=== PATIENT | female | born 1975 | race Caucasian/White ===

== ENCOUNTER 2017-06-03 17:50 | Emergency (ER) | payer OTHER ==
[2017-06-03 17:55] VITALS: BP 140/97; PULSE 91; TEMP 98.5; BMI 38.3
[2017-06-03] MEDS ORDERED: ACETAMINOPHEN 325 MG TABLET (FP) PO ONE (18:13)
--- NOTE | 2017-06-03 18:18 | PDOC ---
History of Present Illness - General History Source: Patient - History of Present Illness Timing/Duration: other Severity: severe Associated Symptoms: reports: headaches. denies: cough, diaphoresis, fever/ chills, malaise, nausea/vomiting, shortness of breath, weakness <Bola Milton - Last Filed: 06/03/17 18:56> <Yeny De La Garza - Last Filed: 06/03/17 21:04> - General Chief Complaint: Pain Stated Complaint: ACUTE, PAIN Time Seen by Provider: 06/03/17 17:59 Past History - Past Medical History Thyroid Disease: Yes - Surgical History Abdominal Surgery: Yes - Psycho/Social/Smoking Cessation Hx Suicidal Ideation: No Smoking History: Never smoked Information on smoking cessation initiated: No <Bola Milton - Last Filed: 06/03/17 18:56> <Yeny De La Garza - Last Filed: 06/03/17 21:04> - Past Medical History Allergies/Adverse Reactions: Allergies Allergy/AdvReac Type Severity Reaction Status Date / Time aspirin Allergy Verified 06/03/17 17:55 Home Medications: Ambulatory Orders Ibuprofen 600 mg PO TID PRN #21 tablet 06/03/17 Levothyroxine [Synthroid -] 25 mcg PO DAILY 06/03/17 Review of Systems - Review of Systems Constitutional: No: Chills, Fever Respiratory: No: Cough, Shortness of Breath Cardiac (ROS): No: Chest Pain ABD/GI: No: Diarrhea, Nausea, Vomiting : No: Dysuria Neurological: Yes: Headache, Dizziness <Bola Milton - Last Filed: 06/03/17 18:56> *Physical Exam - Vital Signs Last Vital Signs Temp Pulse Resp BP Pulse Ox 98.5 F 91 H 18 140/97 98 06/03/17 17:51 06/03/17 17:51 06/03/17 17:51 06/03/17 17:51 06/03/17 17:51 - Physical Exam General Appearance: Yes: Appropriately Dressed. No: Apparent Distress HEENT: positive: Normal Voice Neck: positive: Supple Respiratory/Chest: positive: Lungs Clear, Normal Breath Sounds. negative: Respiratory Distress Cardiovascular: positive: Regular Rate, S1, S2 Gastrointestinal/Abdominal: positive: Soft. negative: Tender Extremity: positive: Normal Inspection. negative: Tender, Swelling Integumentary: positive: Dry, Warm Neurologic: positive: Fully Oriented, Alert, Normal Mood/Affect <Bola Milton - Last Filed: 06/03/17 18:56> - Vital Signs Last Vital Signs Temp Pulse Resp BP Pulse Ox 98.5 F 91 H 18 140/97 98 06/03/17 17:51 06/03/17 17:51 06/03/17 17:51 06/03/17 17:51 06/03/17 17:51 <Yeny De La Garza - Last Filed: 06/03/17 21:04> ED Treatment Course - LABORATORY CBC & Chemistry Diagram: 06/03/17 18:25 06/03/17 18:25 - RADIOLOGY Radiology Studies Ordered: Category Date Time Status CHEST X-RAY PORTABLE* [RAD] Stat Radiology 06/03/17 18:12 Ordered <Bola Milton - Last Filed: 06/03/17 18:56> - LABORATORY CBC & Chemistry Diagram: 06/03/17 18:25 06/03/17 18:25 - ADDITIONAL ORDERS Additional order review: Laboratory Results 06/03/17 06/03/17 06/03/17 19:00 18:25 18:25 Sodium 140 Potassium 3.9 Chloride 107 Carbon Dioxide 24 Anion Gap 9 BUN 14 Creatinine 1.0 Creat Clearance w eGFR > 60 Random Glucose 102 Total Bilirubin 0.3 AST 31 ALT 49 Alkaline Phosphatase 107 Creatine Kinase 372 H Troponin I < 0.02 Total Protein 7.3 Albumin 3.5 Lipase 202 TSH 1.20 Serum , Qual Negative Urine Color Straw Urine Appearance Clear Urine pH 6.0 Urine Protein Negative Urine Glucose (UA) Negative Urine Ketones Negative Urine Blood 1+ H Urine Nitrite Negative Urine Bilirubin Negative Urine Urobilinogen Negative Ur Leukocyte Esterase Negative Urine RBC <1 Urine WBC None Ur Epithelial Cells Rare Urine Bacteria Rare Urine Mucus Rare 06/03/17 18:25 RBC 4.75 MCV 86.0 MCHC 33.5 RDW 15.0 MPV 10.5 Neutrophils % 56.8 Lymphocytes % 33.1 Monocytes % 6.8 Eosinophils % 2.2 Basophils % 1.1 - Medications Given in the ED: ED Medications Discontinued Medications Generic Name Dose Route Start Last Admin Trade Name Freq PRN Reason Stop Dose Admin Acetaminophen 650 mg 06/03/17 18:13 06/03/17 18:33 Tylenol - PO 06/03/17 18:14 650 mg ONCE ONE Administration Ketorolac Tromethamine 60 mg 06/03/17 20:27 06/03/17 20:33 Toradol Injection - IM 06/03/17 20:28 60 mg ONCE ONE Administration <Yeny De La Garza - Last Filed: 06/03/17 21:04> Medical Decision Making - Medical Decision Making 06/03/17 18:14 42 yo F, h/o hyperthyroidism, on meds, here w/ pain to R side of body from head to foot x several days. Unable to describe pain, but states it is severe and has , had intermittent lightheadedness since yesterday. Patient denies any URI symptoms, fever, chills, nausea, vomiting, chest pain, shortness of breath, change in bowel movements or dysuria. No trauma or obvious inciting factors. No history of similar symptoms See exam Body aches w/ intermittent lightheadedness of unclear etiology, ?viral Exam unremarkable -basic labs -pain control -anticipate dc w/ pmd f/u 06/03/17 18:17 06/03/17 18:18 <Bola Milton - Last Filed: 06/03/17 18:56> *DC/Admit/Observation/Transfer <Bola Milton - Last Filed: 06/03/17 18:56> <Yeny De La Garza - Last Filed: 06/03/17 21:04> Diagnosis at time of Disposition: Body aches - Discharge Dispostion Condition at time of disposition: Good - Prescriptions Prescriptions: Ibuprofen 600 mg PO TID PRN #21 tablet PRN Reason: Pain - Referrals Referrals: Amrita Hanson [Primary Care Provider] - - Patient Instructions Additional Instructions: The cause of your symptoms are unclear at this time; as discussed, you must follow up with Dr. Hanson and the storekeeper engineering for further evaluation of your body aches. Take ibuprofen as needed for pain. If you develop fever, chills, nausea, vomiting, diarrhea, chest pain, sudden sharp headache, weakness , blurry vision, difficulty speaking or walking, or any new or worsening symptoms, please return to the ER.
[2017-06-03] MEDS ORDERED: ACETAMINOPHEN 325 MG TABLET (FP) ONE (18:31)
[2017-06-03 18:44] LABS: BASOPHIL 1.1 % (0-2.0); EOSINOPHIL 2.2 % (0-4.5); MCH 28.8 pg (25.7-33.7); MCHC 33.5 g/dl (32.0-36.0); MEAN PLT VOLUME 10.5 fl (7.5-11.1); NEUTROPHILS 56.8 % (42.8-82.8); PLATELET COUNT 233 K/MM3 (134-434); WHITE BLOOD COUNT 8.4 K/mm3 (4.0-10.0)
[2017-06-03 19:05] LABS: URINE APPEARANCE CLEAR; URINE BILIRUBIN NEGATIVE (NEGATIVE); URINE BLOOD 1+ (NEGATIVE); URINE COLOR STRAW; URINE GLUCOSE (UA) NEGATIVE (NEGATIVE); URINE KETONE NEGATIVE (NEGATIVE); URINE LEUK ESTERASE NEGATIVE (NEGATIVE); URINE NITRITE NEGATIVE (NEGATIVE); URINE PROTEIN NEGATIVE (NEGATIVE); URINE UROBILINOGEN NEGATIVE mg/dL (0.2-1.0)
--- NOTE | 2017-06-03 19:05 | PDOC ---
*Physical Exam - Vital Signs Last Vital Signs Temp Pulse Resp BP Pulse Ox 98.5 F 91 H 18 140/97 98 06/03/17 17:51 06/03/17 17:51 06/03/17 17:51 06/03/17 17:51 06/03/17 17:51 Heart Score/ECG Review #1 ECG reviewed & interpreted by me at: 19:05 General ECG Interpretation: Sinus Rhythm, Normal Rate, Normal Intervals, No acute ischemic changes ED Treatment Course - LABORATORY CBC & Chemistry Diagram: 06/03/17 18:25 06/03/17 18:25 - ADDITIONAL ORDERS Additional order review: 06/03/17 18:25 RBC 4.75 MCV 86.0 MCHC 33.5 RDW 15.0 MPV 10.5 Neutrophils % 56.8 Lymphocytes % 33.1 Monocytes % 6.8 Eosinophils % 2.2 Basophils % 1.1 - Medications Given in the ED: ED Medications Discontinued Medications Generic Name Dose Route Start Last Admin Trade Name Freq PRN Reason Stop Dose Admin Acetaminophen 650 mg 06/03/17 18:13 06/03/17 18:33 Tylenol - PO 06/03/17 18:14 650 mg ONCE ONE Administration Medical Decision Making - Medical Decision Making This patient is a 42 yo F who presents to the ER with a complaint of right sided pain Pt seen by Midlevel Provider under my direct supervision Ancillary studies reviewed I agree with plan as outlined by Midlevel Provider No findings on pt labs Pt apparently has had elevated ANAs with her PMD Given toradol with decreased pain D/c to home Follow up with PMD 06/03/17 21:05 Laboratory Tests 06/03/17 06/03/17 06/03/17 18:25 18:25 18:25 WBC 8.4 Hgb 13.7 Hct 40.8 Plt Count 233 Sodium 140 Potassium 3.9 Chloride 107 Carbon Dioxide 24 BUN 14 Creatinine 1.0 Random Glucose 102 Creatine Kinase 372 H Troponin I < 0.02 Lipase 202 TSH Serum , Qual Negative Urine Blood 1+ H Urine Nitrite Negative Ur Leukocyte Esterase Negative 06/03/17 19:00 WBC Hgb Hct Plt Count Sodium Potassium Chloride Carbon Dioxide BUN Creatinine Random Glucose Creatine Kinase Troponin I Lipase TSH 1.20 Serum , Qual Urine Blood Urine Nitrite Ur Leukocyte Esterase 06/03/17 21:08 *DC/Admit/Observation/Transfer Diagnosis at time of Disposition: Body aches - Discharge Dispostion Condition at time of disposition: Good - Prescriptions Prescriptions: Ibuprofen 600 mg PO TID PRN #21 tablet PRN Reason: Pain - Referrals Referrals: Amrita Hanson [Primary Care Provider] - - Patient Instructions Additional Instructions: The cause of your symptoms are unclear at this time; as discussed, you must follow up with Dr. Hanson and the chicken catcher for further evaluation of your body aches. Take ibuprofen as needed for pain. If you develop fever, chills, nausea, vomiting, diarrhea, chest pain, sudden sharp headache, weakness , blurry vision, difficulty speaking or walking, or any new or worsening symptoms, please return to the ER. - Post Discharge Activity
[2017-06-03 19:06] LABS: URINE BACTERIA RARE /hpf (NONE SEEN); URINE MUCUS RARE; URINE RBC <1 /hpf (0-3)
--- NOTE | 2017-06-03 19:19 | PDOC ---
*Physical Exam - Vital Signs Last Vital Signs Temp Pulse Resp BP Pulse Ox 98.5 F 91 H 18 140/97 98 06/03/17 17:51 06/03/17 17:51 06/03/17 17:51 06/03/17 17:51 06/03/17 17:51 - Physical Exam Comments: 06/03/17 19:17 Sign-out received from outgoing ER provider Yoan. Pt interviewed and examined. Ancillary studies reviewed. Awaiting labs. 06/03/17 20:31 CK elevated to 372, labs otherwise unremarkable. Patient reassessed; states she is feeling " a little better" but continues to have headache and R sided "cramping and like numbness". At this time patient reports that she had elevated TATUM levels from her last physical with Dr. Amrita Hanson and has an appointment with a internal control manager next week. Discussed with patient that it is important for her to keep her appointment but at this time we will try to control her pain and cramping. -60 mg Toradol IM 06/03/17 21:01 Patient reassessed; at this time she states she no longer feels any cramping or pain and is ready to go home. Patient states she will follow up with Dr. Hanson and the internal control manager for further evaluation of her new onset unilateral body aches. Advised patient of signs and symptoms for return to ER; patient verbalized understanding and agrees to plan. ED Treatment Course - LABORATORY CBC & Chemistry Diagram: 06/03/17 18:25 06/03/17 18:25 - ADDITIONAL ORDERS Additional order review: Laboratory Results 06/03/17 18:25 Urine Color Straw Urine Appearance Clear Urine pH 6.0 Urine Protein Negative Urine Glucose (UA) Negative Urine Ketones Negative Urine Blood 1+ H Urine Nitrite Negative Urine Bilirubin Negative Urine Urobilinogen Negative Ur Leukocyte Esterase Negative Urine RBC <1 Urine WBC None Ur Epithelial Cells Rare Urine Bacteria Rare Urine Mucus Rare 06/03/17 18:25 RBC 4.75 MCV 86.0 MCHC 33.5 RDW 15.0 MPV 10.5 Neutrophils % 56.8 Lymphocytes % 33.1 Monocytes % 6.8 Eosinophils % 2.2 Basophils % 1.1 - Medications Given in the ED: ED Medications Discontinued Medications Generic Name Dose Route Start Last Admin Trade Name Freq PRN Reason Stop Dose Admin Acetaminophen 650 mg 06/03/17 18:13 06/03/17 18:33 Tylenol - PO 06/03/17 18:14 650 mg ONCE ONE Administration *DC/Admit/Observation/Transfer Diagnosis at time of Disposition: Body aches - Discharge Dispostion Disposition: HOME Condition at time of disposition: Improved Admit: No - Prescriptions Prescriptions: Ibuprofen 600 mg PO TID PRN #21 tablet PRN Reason: Pain - Referrals Referrals: Amrita Hanson [Primary Care Provider] - - Patient Instructions Additional Instructions: The cause of your symptoms are unclear at this time as all your labs were normal in ED. Take tylenol as needed for pain and follow up with your PMD if symptoms persist - Post Discharge Activity
[2017-06-03 19:31] LABS: ALBUMIN 3.5 g/dl (3.4-5.0); ANION GAP 9 (8-16); BILIRUBIN,TOTAL 0.3 mg/dL (0.2-1.0); CO2 24 mmol/L (21-32); GLUCOSE,RANDOM 102 mg/dL (74-106); SGOT/AST 31 U/L (15-37); SGPT/ALT 49 U/L (12-78); TOT PROT 7.3 g/dl (6.4-8.2)
[2017-06-03 19:33] LABS: ALK PHOS 107 U/L (45-117); CPK 372 IU/L (26-192); TROPONIN I < 0.02 ng/ml (0.00-0.05)
[2017-06-03] MEDS ORDERED: KETOROLAC TROMETHAMINE 60 MG/2 ML VIAL IM ONE (20:27)
[2017-06-03] MEDS ORDERED: KETOROLAC TROMETHAMINE 60 MG/2 ML VIAL ONE (20:43)
[2017-06-03 23:32] LABS: CALCIUM 9.2 mg/dL (8.5-10.1)
--- NOTE | 2017-06-04 12:25 | EKG ---
Test Reason : Blood Pressure : / mmHG Vent. Rate : 079 BPM Atrial Rate : 079 BPM P-R Int : 178 ms QRS Dur : 080 ms QT Int : 380 ms P-R-T Axes : 035 029 033 degrees QTc Int : 435 ms NORMAL SINUS RHYTHM NORMAL ECG NO PREVIOUS ECGS AVAILABLE Confirmed by ALKA LI MD ([id number]) on 06/04/2017 12:25:14 PM Referred By: Confirmed By:ALKA LI MD
== END 2017-06-03 21:20 | disposition home or self-care (01) ==
LOC: JER 17:50
PROC: 3E0233Z Introduction of Anti-inflammatory into Muscle, Percutaneous Approach (ICD-10-PCS; principal; 2017-06-03)
DX: R52 Pain, unspecified (principal)
CPT/HCPCS: 36415; 71010-TC; 80053; 81003; 81015; 82553; 83690; 84443; 84484; 84703; 85025; 93005; 93010; 99283-25

== ENCOUNTER 2018-07-21 17:32 | Emergency (ER) | payer OTHER ==
[2018-07-21 17:41] VITALS: BP 140/90; PULSE 83; TEMP 97.9; BMI 41.3
[2018-07-21] MEDS ORDERED: ACETAMINOPHEN 500 MG TABLET (FP) PO ONE (17:42)
--- NOTE | 2018-07-21 17:42 | PDOC ---
Rapid Medical Evaluation Chief Complaint: Back Pain Time Seen by Provider: 07/21/18 17:40 Medical Evaluation: Allergies Allergy/AdvReac Type Severity Reaction Status Date / Time aspirin Allergy Verified 06/03/17 17:55 07/21/18 17:40 I have performed a brief in-person evaluation of this patient. The patient presents with a chief complaint of: atraumatic lower back pain since this morning Pertinent physical exam findings: No spinal tenderness. No CVAT. I have ordered the following: Tylenol The patient will proceed to the ED for further evaluation. Discharge Disposition - Diagnosis Back pain - Referrals - Patient Instructions - Post Discharge Activity
[2018-07-21] MEDS ORDERED: ACETAMINOPHEN 325 MG TABLET (FP) ONE (17:57)
[2018-07-21] MEDS ORDERED: KETOROLAC TROMETHAMINE 60 MG/2 ML VIAL IM ONE (18:04)
[2018-07-21] MEDS ORDERED: KETOROLAC TROMETHAMINE 60 MG/2 ML VIAL ONE (18:06)
--- NOTE | 2018-07-21 18:16 | PDOC ---
History of Present Illness - General Chief Complaint: Back Pain Stated Complaint: BACK PAIN Time Seen by Provider: 07/21/18 17:40 History Source: Patient Exam Limitations: No Limitations - History of Present Illness Initial Comments: 07/21/18 18:09 43 yr female history of hypothyroid states she pulled her lower back one week ago then today bent over to get soap in shower and felt a pain, worse to low back radiates to the left leg . Pain Location: reports: none, back Past History - Past Medical History Allergies/Adverse Reactions: Allergies Allergy/AdvReac Type Severity Reaction Status Date / Time aspirin Allergy Verified 06/03/17 17:55 Home Medications: Ambulatory Orders Levothyroxine [Synthroid -] 25 mcg PO DAILY 06/03/17 Cyclobenzaprine HCl [Flexeril -] 10 mg PO TID #21 tablet 07/21/18 Ibuprofen 600 mg PO TID PRN #20 tablet 07/21/18 Thyroid Disease: Yes - Surgical History Abdominal Surgery: Yes - Suicide/Smoking/Psychosocial Hx Smoking History: Never smoked Have you smoked in the past 12 months: No Information on smoking cessation initiated: No Hx Alcohol Use: No Drug/Substance Use Hx: No Review of Systems - Review of Systems Able to Perform ROS?: Yes Is the patient limited Guatemalan proficient: No Constitutional: No: Symptoms Reported HEENTM: No: Symptoms Reported Respiratory: No: Symptoms reported Cardiac (ROS): No: Symptoms Reported ABD/GI: No: Symptoms Reported : No: Symptoms Reported Musculoskeletal: Yes: Symptoms Reported, Back Pain *Physical Exam - Vital Signs Last Vital Signs Temp Pulse Resp BP Pulse Ox 97.9 F 83 16 140/90 98 07/21/18 17:37 07/21/18 17:37 07/21/18 17:37 07/21/18 17:37 07/21/18 17:37 - Physical Exam General Appearance: Yes: Nourished, Appropriately Dressed HEENT: positive: EOMI, RABIA Neck: positive: Supple. negative: Tender Respiratory/Chest: positive: Lungs Clear, Normal Breath Sounds Cardiovascular: positive: Regular Rhythm, Regular Rate Gastrointestinal/Abdominal: positive: Normal Bowel Sounds, Soft Lymphatic: negative: Adenopathy Musculoskeletal: positive: Normal Inspection, Decreased Range of Motion, Other ( paraspinal lumbar pain ). negative: CVA Tenderness, CVA Tenderness (R), CVA Tenderness (L), Vertebral Tenderness Extremity: positive: Normal Capillary Refill, Normal Inspection, Normal Range of Motion, Other (negative SLR left leg ) Integumentary: positive: Normal Color, Dry, Warm Neurologic: positive: Fully Oriented, Alert, Normal Mood/Affect, Normal Response , Motor Strength 01/30 ED Treatment Course - Medications Given in the ED: ED Medications Discontinued Medications Generic Name Dose Route Start Last Admin Trade Name Freq PRN Reason Stop Dose Admin Acetaminophen 975 mg 07/21/18 17:42 07/21/18 17:58 Tylenol - PO 07/21/18 17:43 975 mg ONCE ONE Administration Medical Decision Making - Medical Decision Making 07/21/18 18:16 cc: low back pain radiates to the left leg and thigh no abd pain no urine or bowel dysfunction no saddle anesthesia 07/21/18 18:20 toradol for pain will dc home with flexeril and ibuprofen (pt can take ibuprofen does not have allergy like ASA allergy, pt has tachycardia and halluciantions) *DC/Admit/Observation/Transfer Diagnosis at time of Disposition: Back pain Qualifiers: Back pain location: low back pain Chronicity: acute Back pain laterality: bilateral Sciatica presence: with sciatica Sciatica laterality: sciatica of left side Qualified Code(s): M54.42 - Lumbago with sciatica, left side - Discharge Dispostion Disposition: HOME Condition at time of disposition: Good - Prescriptions Prescriptions: Cyclobenzaprine HCl [Flexeril -] 10 mg PO TID #21 tablet Ibuprofen 600 mg PO TID PRN #20 tablet PRN Reason: Back Pain - Referrals Referrals: Mayi Kang MD [Primary Care Provider] - - Patient Instructions Additional Instructions: apply warm compresses to the lower back every 4hrs for 20 minutes use a topical cream such as Icy Hot or Aspercream take the flexeril muscle relaxant for spasm, take the ibuprofen for pain follow with your doctor in 2 days Return if any worse - Post Discharge Activity Forms/Work/School Notes: Back to Work
== END 2018-07-21 18:33 | disposition home or self-care (01) ==
LOC: JERFT 17:32
PROC: 3E0233Z Introduction of Anti-inflammatory into Muscle, Percutaneous Approach (ICD-10-PCS; principal; 2018-07-21)
DX: M54.42 Lumbago with sciatica, left side (principal)
CPT/HCPCS: 99281-25

== ENCOUNTER 2018-09-23 11:31 | Emergency (ER) | payer OTHER ==
[2018-09-23 11:53] VITALS: BP 149/84; PULSE 83; TEMP 98.3; BMI 41.3
[2018-09-23] MEDS ORDERED: METOCLOPRAMIDE HCL INJECTION 10 MG/2 ML VIAL IVPUSH ONE (14:09)
[2018-09-23] MEDS ORDERED: METOCLOPRAMIDE HCL INJECTION 10 MG/2 ML VIAL ONE (14:12)
[2018-09-23] MEDS ORDERED: SODIUM CHLORIDE 1,000 ML IV SCH (14:15)
[2018-09-23 14:27] LABS: BASO % 1.5 % (0-2.0); EOS % 1.7 % (0-4.5); HEMATOCRIT 38.4 % (32.4-45.2); HEMOGLOBIN 13.5 GM/dL (10.7-15.3); LYMPH % 33.2 % (8-40); MCH 30.1 pg (25.7-33.7); MCHC 35.3 g/dl (32.0-36.0); MEAN CELL VOLUME 85.4 fl (80-96); MEAN PLT VOLUME 10.4 fl (7.5-11.1); MONO % 7.4 % (3.8-10.2); NEUT % 56.2 % (42.8-82.8); PLATELET COUNT 216 K/MM3 (134-434); RBC 4.49 M/mm3 (3.60-5.2); RDW 15.1 % (11.6-15.6)
--- NOTE | 2018-09-23 14:34 | PDOC ---
History of Present Illness - General Chief Complaint: Headache Stated Complaint: HEADACHE, NAUSEA Time Seen by Provider: 09/23/18 13:54 History Source: Patient Exam Limitations: No Limitations - History of Present Illness Initial Comments: 09/23/18 14:28 CHIEF COMPLAINT: Headache HISTORY OF PRESENT ILLNESS: This is a 43-year-old female with a history of Sjogren syndrome, hypothyroidism, migraines, and neuropathy who presents with 10 days of worsening headache. She describes the pain as right-sided, throbbing , and intense. The pain is associated with nausea without vomiting, photophobia , and right arm numbness. She reports that this is different from prior migraines. She denies any focal weakness, change in speech, change in vision, ataxia, or any other symptoms. She has tried Tylenol and ibuprofen without relief. Vital signs on arrival are unremarkable. REVIEW OF SYSTEMS: GENERAL/CONSTITUTIONAL: No fever or chills. No weakness. No weight change. HEAD, EYES, EARS, NOSE AND THROAT: No change in vision. No ear pain or discharge. No sore throat. CARDIOVASCULAR: No chest pain or palpitations. RESPIRATORY: No cough, wheezing, or shortness of breath. GASTROINTESTINAL: No nausea, vomiting, diarrhea or constipation. GENITOURINARY: No dysuria, frequency, or change in urination. MUSCULOSKELETAL: No joint or muscle swelling or pain. No neck or back pain. SKIN: No rash or easy bruising. NEUROLOGIC: See HPI. PSYCHIATRIC: No depression or anxiety. ENDOCRINE: No increased thirst. No abnormal weight change. HEMATOLOGIC/LYMPHATIC: No anemia, easy bleeding, or history of blood clots. ALLERGIC/IMMUNOLOGIC: No hives or skin allergy. No latex allergy. PHYSICAL EXAM: GENERAL: The patient is awake, alert, and fully oriented, in no acute distress. HEAD: Normal with no signs of trauma. ENT: Pupils equal, round and reactive to light, extraocular movements intact, sclera anicteric, conjunctiva clear. Neck supple. LUNGS: Clear to auscultation bilaterally. Normal excursion. No respiratory distress or use of accessory muscles. CV: RRR, S1/S2, no MRG. Cap refill < 2 sec. ABDOMEN: Soft, non-distended, non-tender. EXTREMITIES: Normal range of motion, no edema. NEUROLOGICAL: Normal speech, normal gait. CN II-XII grossly intact. No temporal tenderness. PSYCH: Normal mood, normal affect. SKIN: Warm, dry, normal turgor, no rashes or lesions noted. Past History - Past Medical History Allergies/Adverse Reactions: Allergies Allergy/AdvReac Type Severity Reaction Status Date / Time aspirin Allergy Verified 06/03/17 17:55 Home Medications: Ambulatory Orders Levothyroxine [Synthroid -] 112 mcg PO DAILY 06/03/17 Ibuprofen 600 mg PO TID PRN #20 tablet 07/21/18 Acetaminophen/Caffeine/Butalb [Fioricet -] 1 tab PO Q6H PRN #28 tablet MDD 4 tabs 09/23/18 Duloxetine HCl [Cymbalta -] 30 mg PO HS 09/23/18 Gabapentin [Neurontin] 600 mg PO TID 09/23/18 Hydroxychloroquine Sulfate 400 mg PO HS 09/23/18 COPD: No Thyroid Disease: Yes Other medical history: Monie's, TATUM+, arthritis, Sjogren's syndrome - Surgical History Abdominal Surgery: Yes Appendectomy: Yes - Suicide/Smoking/Psychosocial Hx Smoking History: Never smoked Have you smoked in the past 12 months: No Information on smoking cessation initiated: No Hx Alcohol Use: No Drug/Substance Use Hx: No *Physical Exam - Vital Signs Last Vital Signs Temp Pulse Resp BP Pulse Ox 98.3 F 83 18 149/84 97 09/23/18 11:48 09/23/18 11:48 09/23/18 11:48 09/23/18 11:48 09/23/18 11:48 Moderate Sedation - Procedure Monitoring Vital Signs: Procedure Monitoring Vital Signs Temperature 98.3 F 09/23/18 11:48 Pulse Rate 83 09/23/18 11:48 Respiratory Rate 18 09/23/18 11:48 Blood Pressure 149/84 09/23/18 11:48 O2 Sat by Pulse Oximetry (%) 97 09/23/18 11:48 ED Treatment Course - LABORATORY CBC & Chemistry Diagram: 09/23/18 14:18 09/23/18 16:50 - RADIOLOGY Radiology Studies Ordered: Category Date Time Status HEAD CT WITH CONTRAST [CT] Stat CT Scan 09/23/18 14:09 Ordered - Medications Given in the ED: ED Medications Discontinued Medications Generic Name Dose Route Start Last Admin Trade Name Freq PRN Reason Stop Dose Admin Diphenhydramine HCl 12.5 mg 09/23/18 14:09 09/23/18 14:18 Benadryl Injection - IVPUSH 09/23/18 14:10 12.5 mg ONCE ONE Administration Metoclopramide HCl 10 mg 09/23/18 14:09 09/23/18 14:18 Reglan Injection - IVPUSH 09/23/18 14:10 10 mg ONCE ONE Administration Medical Decision Making - Medical Decision Making 09/23/18 14:38 A/P: 43-year-old female with 10 days of worsening headache, not similar to previous migraines. No focal neurologic deficits on exam. 1. Reglan/Benadryl/fluids for symptomatic relief 2. CT brain 3. Labs including CBC, CMP, PT/INR 4. Reevaluate 09/23/18 18:17 Labs unremarkable 09/23/18 18:43 CT brain negative for acute intracranial process. Patient still complains of 8/ 10 pain. Will give Ofirmev. . 09/23/18 18:56 Patient reports pain completely relieved after Ofirmev. Will rx Fioricet. She will follow up with her neurologist tomorrow. *DC/Admit/Observation/Transfer Diagnosis at time of Disposition: Headache Qualifiers: Headache type: unspecified Headache chronicity pattern: acute headache Intractability: not intractable Qualified Code(s): R51 - Headache - Discharge Dispostion Disposition: HOME Condition at time of disposition: Stable Decision to Admit order: No - Prescriptions Prescriptions: Acetaminophen/Caffeine/Butalb [Fioricet -] 1 tab PO Q6H PRN #28 tablet MDD 4 tabs PRN Reason: Headache - Referrals Referrals: Mariel Patricia MD [Staff Physician] - Call tomorrow - Patient Instructions Printed Discharge Instructions: DI for Migraine Additional Instructions: -Rest and stay well-hydrated -Take Fioricet as needed for pain -Follow up with Dr. Patricia tomorrow -Return here for any new or concerning symptoms - Post Discharge Activity
[2018-09-23 14:48] LABS: INR 0.96 (0.83-1.09); PROTHROMBIN TIME (PATIENT) 11.3 SEC (9.7-13.0)
[2018-09-23 15:35] LABS: ERYTHROCYTE SEDIMENTATION RATE 7 mm/hr (0-20)
[2018-09-23 17:21] LABS: ALBUMIN 3.5 g/dl (3.4-5.0); ALK PHOS 95 U/L (45-117); ANION GAP 7 MMOL/L (8-16); BILIRUBIN,TOTAL 0.5 mg/dL (0.2-1); BLOOD UREA NITROGEN 9 mg/dL (7-18); CALCIUM 8.3 mg/dL (8.5-10.1); CHLORIDE 109 mmol/L (98-107); CO2 26 mmol/L (21-32); GLUCOSE,RANDOM 92 mg/dL (74-106); POTASSIUM 3.8 mmol/L (3.5-5.1); SGOT/AST 19 U/L (15-37); SGPT/ALT 26 U/L (13-61); SODIUM 142 mmol/L (136-145); TOT PROT 6.6 g/dl (6.4-8.2)
[2018-09-23] MEDS ORDERED: ACETAMINOPHEN 1000 MG/100 ML VIAL (NON FORMULARY) IVPB ONE (18:37)
[2018-09-23] MEDS ORDERED: ACETAMINOPHEN INJECTION 100 ML IVPB ONE (18:38)
== END 2018-09-23 19:06 | disposition home or self-care (01) ==
LOC: JER 11:31
PROC: 3E033NZ Introduction of Analgesics, Hypnotics, Sedatives into Peripheral Vein, Percutaneous Approach (ICD-10-PCS; principal; 2018-09-23)
PROC: 3E033GC Introduction of Other Therapeutic Substance into Peripheral Vein, Percutaneous Approach (ICD-10-PCS; 2018-09-23)
PROC: 3E033GC Introduction of Other Therapeutic Substance into Peripheral Vein, Percutaneous Approach (ICD-10-PCS; 2018-09-23)
DX: R51 Headache (principal); E03.9 Hypothyroidism, unspecified; E06.3 Autoimmune thyroiditis; G43.909 Migraine, unspecified, not intractable, without status migrainosus; M35.00 Sjogren syndrome, unspecified; G62.9 Polyneuropathy, unspecified
CPT/HCPCS: 36415; 70450-TC; 80053; 85025; 85610; 85651; 99283-25; J0131; J7030

== ENCOUNTER 2024-06-02 19:18 | Emergency (ER) | payer OTHER ==
[2024-06-02 19:29] VITALS: BMI 33.3
[2024-06-02 19:52] LABS: URINE APPEARANCE CLEAR; URINE BILIRUBIN NEGATIVE (NEGATIVE); URINE COLOR YELLOW; URINE GLUCOSE (UA) NEGATIVE (NEGATIVE); URINE KETONE NEGATIVE (NEGATIVE); URINE LEUK ESTERASE NEGATIVE (NEGATIVE); URINE NITRITE NEGATIVE (NEGATIVE); URINE PROTEIN TRACE (NEGATIVE)
[2024-06-02 21:00] LABS: BASO % 1.1 % (0-2.0); EOS % 1.3 % (0-4.5); HEMOGLOBIN 13.1 GM/dL (10.7-15.3); LYMPH % 18.6 % (8-40); MCH 30.6 pg (25.7-33.7); MCHC 33.5 g/dl (32.0-36.0); MEAN CELL VOLUME 91.5 fl (80-96); MEAN PLT VOLUME 10.6 fl (7.5-11.1); PLATELET COUNT 170 10^3/uL (134-434); RBC 4.27 M/mm3 (3.60-5.2); RDW 14.4 % (11.6-15.6); WHITE BLOOD COUNT 9.9 K/mm3 (4.0-10.0)
[2024-06-02 21:16] LABS: POTASSIUM 3.7 mmol/L (3.5-5.1)
[2024-06-02 21:18] LABS: ALBUMIN 3.7 g/dl (3.4-5.0)
[2024-06-02 21:19] LABS: BLOOD UREA NITROGEN 13.3 mg/dL (7-18)
[2024-06-02 21:22] LABS: CREATININE 1.2 mg/dL (0.55-1.3)
[2024-06-02 21:23] LABS: BILIRUBIN,TOTAL 0.9 mg/dL (0.2-1); TOT PROT 7.4 g/dl (6.4-8.2)
[2024-06-02 22:12] LABS: HIV INTERPRETATION NEGATIVE (NEGATIVE)
[2024-06-02 23:31] LABS: HCG,QUALITATIVE URINE Negative
[2024-06-03] MEDS ORDERED: ACETAMINOPHEN INJECTION 100 ML ONE (00:14)
[2024-06-03] MEDS: ACETAMINOPHEN 1000 MG/100 ML BAG IVPB ONE (00:20)
[2024-06-03] MEDS: SODIUM CHLORIDE 0.9% 500 ML INFUS.BAG IV ONE (00:20)
[2024-06-03] MEDS ORDERED: AMOX TR/POT CLAV 875MG/125MG TABLETS (FP) PO ONE (01:46)
[2024-06-03 01:58] VITALS: BP 128/79; PULSE 70; RESP 15; TEMP 96.9
== END 2024-06-03 01:59 | disposition home or self-care (01) ==
LOC: JER 19:18
PROC: 3E033NZ Introduction of Analgesics, Hypnotics, Sedatives into Peripheral Vein, Percutaneous Approach (ICD-10-PCS; principal; 2024-06-03)
DX: K57.32 Diverticulitis of large intestine without perforation or abscess without bleeding (principal); R10.32 Left lower quadrant pain; R30.0 Dysuria; R50.9 Fever, unspecified; R11.0 Nausea
CPT/HCPCS: 36415; 74177-TC; 80053; 81003; 83605; 83690; 84703; 85025; 86803; 87086; 87389; 93005; 93010; 99285-25; J0131; Q9967